=== PATIENT | female | born 2000 | race Caucasian/White ===

== ENCOUNTER 2022-07-02 09:50 | Outpatient (CLI) | payer OTHER | END 2022-07-02 09:51 | disposition home or self-care (01) | LOC: DTY/OP 09:50 | PROVIDERS: ATTEND Surgery | DX: E66.01 Morbid (severe) obesity due to excess calories (principal) | CPT/HCPCS: 97802 ==

== ENCOUNTER 2022-07-14 06:54 | Outpatient (CLI) | payer OTHER ==
[2022-07-14 10:34] LABS: #Eosinphils 0.2 10x3/uL (0.0-0.5); #Monocytes 0.7 10x3/uL (0.0-1.1); #Neutrophils 4.1 10x3/uL (1.5-8.4); %Basophils 0.4 % (0.0-2.0); %Eosinophils 2.3 % (0.0-6.0); %Lymphocytes 32.3 % (18.0-47.0); %Monocytes 8.9 % (0.0-10.0); Hemoglobin 14.9 g/dL (12.0-15.5); Mean Corpuscular HGB CONC 34.6 g/dL (32.0-36.0); Mean Corpuscular Hemoglobin 29.3 pg (27.0-33.0); Mean Corpuscular Volume 84.8 fl (81.6-98.3); Mean Platelet Volume 10.9 fl (7.4-10.4); Platelet Count 318 10x3/uL (150-450); RBC Distribution Width 13.4 % (11.5-14.5); Red Blood Cell (RBC) Count 5.08 10x6/uL (3.90-5.03); White Blood Cell (WBC) Count 7.3 10x3/uL (3.5-10.5)
[2022-07-14 10:41] LABS: BHCG - Serum Negative (NEGATIVE); Pregs Control Background? CLEAR/WHITE (CLR/WHITE); Pregs Control Bar Appear? YES (CONTROL BAR)
[2022-07-14 10:50] LABS: ALT (SGPT) 32 U/L (8-55); AST (SGOT) 22 U/L (5-34); Albumin 4.2 g/dL (3.5-5.0); Alkaline Phosphatase 74 U/L (40-110); Anion Gap 14 mmol/L (10-20); BUN (Urea Nitrogen) 14 mg/dL (7.0-18.7); Bilirubin, Total 0.4 mg/dL (0.2-1.2); Calc. Creatinine Clearance 0 mL/min (70-130); Calcium 9.1 mg/dL (7.8-10.44); Carbon Dioxide 22 mmol/L (22-29); Chloride 107 mmol/L (98-107); Estimated GFR 117; Globulin 2.8 g/dL (2.4-3.5); Glucose 90 mg/dL (70-105); Potassium 4.4 mmol/L (3.5-5.1); Sodium 139 mmol/L (136-145)
[2022-07-14 14:01] LABS: Hemoglobin A1c 4.8 % (4.0-6.0)
== END 2022-07-14 06:55 | disposition home or self-care (01) ==
LOC: LABBT 06:54
PROVIDERS: ATTEND Surgery
DX: Z01.818 Encounter for other preprocedural examination (principal); E66.01 Morbid (severe) obesity due to excess calories; Z20.822 Contact with and (suspected) exposure to COVID-19
CPT/HCPCS: 71046; 80053; 83036; 84703; 85025; 87811; 93005; 93010

== ENCOUNTER 2022-07-14 07:00 | Inpatient (IN) | payer OTHER ==
[2022-07-15] MEDS ORDERED: Lidocaine 1% MPF 2 ML VIAL ONE (07:42)
[2022-07-15] MEDS ORDERED: Ketamine 50 MG/ML (10ML VIAL) ONE (08:52)
[2022-07-15] MEDS ORDERED: SUGAMMADEX SODIUM 200 MG/2 ML VIAL ONE (08:52)
[2022-07-15] MEDS ORDERED: fentaNYL Citrate/PF 100 MCG/2 ML SYRINGE ONE (08:52)
[2022-07-15] MEDS ORDERED: Bupivacaine/Epinephrine 0.25% 30 ML VIAL ONE ×2 (08:55→08:56)
[2022-07-15] MEDS ORDERED: Midazolam HCl 2 mg/2 ml Vial ONE (09:02)
[2022-07-15] MEDS ORDERED: Sodium Chloride 0.9% 100 ML ONE (09:04)
[2022-07-15] MEDS ORDERED: CEFAZOLIN 2 GM VIAL ONE (09:04)
[2022-07-15] MEDS ORDERED: Ondansetron PF 4 MG/2 ML Vial ONE (09:17)
[2022-07-15] MEDS ORDERED: PROPOFOL 200 MG/20 ML VIAL ONE (09:17)
[2022-07-15] MEDS ORDERED: Glycopyrrolate 0.2 MG/ML 5 ML SYRINGE ONE (09:17)
[2022-07-15] MEDS ORDERED: Rocuronium Bromide 10 MG/ML (10ML VIAL) ONE (09:17)
[2022-07-15] MEDS ORDERED: Dexamethasone 20 MG/5 ML VIAL ONE (09:17)
[2022-07-15] MEDS ORDERED: Neostigmine Methylsulfate 3 MG/3 ML SYRINGE ONE (09:17)
[2022-07-15] MEDS ORDERED: Lidocaine 1% PF 5 ML VIAL ONE (09:17)
[2022-07-15] MEDS ORDERED: Ketorolac Tromethamine 30 MG/ML VIAL ONE (09:17)
[2022-07-15] MEDS ORDERED: Promethazine HCl 25 MG/ML VIAL IM PRN ×3 (09:43→10:21)
[2022-07-15] MEDS ORDERED: diphenhydrAMINE 50 MG/ML VIAL IM PRN (09:43)
[2022-07-15] MEDS ORDERED: diphenhydrAMINE 25 MG CAP PO PRN (09:43)
[2022-07-15] MEDS ORDERED: Ondansetron HCl/PF 4 MG/2 ML Vial IVP PRN (09:43)
[2022-07-15] MEDS ORDERED: fentaNYL Citrate/PF 2,000 MCG in Sodium Chloride 0.9% 60 ML IV PRN (09:43)
[2022-07-15] MEDS ORDERED: diphenhydrAMINE 50 MG/ML VIAL IVP PRN ×2 (09:43→10:21)
[2022-07-15] MEDS ORDERED: Promethazine HCl 25 MG/ML VIAL IVPB PRN (09:43)
[2022-07-15] MEDS ORDERED: Ondansetron PF 4 MG/2 ML Vial IVP PRN ×2 (09:43→10:21)
[2022-07-15] MEDS ORDERED: Naloxone HCl 0.4 mg/ml Vial IV PRN (09:43)
[2022-07-15] MEDS ORDERED: Communication Order-Pharmacy FS SCH (09:45)
[2022-07-15] MEDS ORDERED: Dextrose 50% Abboject 50 ML SYRINGE SLOW IVP PRN (10:21)
[2022-07-15] MEDS ORDERED: hydrALAZINE 20 MG/ML VIAL SLOW IVP PRN (10:21)
[2022-07-15] MEDS ORDERED: Dextrose 5% in Water 1,000 ML IV PRN (10:21)
[2022-07-15] MEDS ORDERED: Fentanyl 100 MCG/2 ML VIAL ONE (10:44)
[2022-07-15] MEDS: D5 1/2 NS w/20 mEq KCL 1,000 ML IV SCH ×2 (15:51→18:06)
[2022-07-16] MEDS: D5 1/2 NS w/20 mEq KCL 1,000 ML IV SCH ×2 (02:37→11:54)
[2022-07-16] MEDS: Hydrocodone-Acetamin 15 ML UDCUP PO PRN ×2 (05:33→11:55)
[2022-07-16 06:15] LABS: #Lymphocytes 2.2 thou/uL (1.20-3.40); #Monocytes 1.1 thou/uL (0.11-0.59); #Neutrophils 9.7 thou/uL (1.40-6.50); %Basophils 0.1 % (0.0-1.0); %Eosinophils 0.1 % (0.0-10.0); %Lymphocytes 17.2 % (21.0-51.0); %Monocytes 8.1 % (0.0-10.0); %Neutrophils 74.5 % (42.0-75.0); Hemoglobin 13.6 g/dL (12.0-16.0); Mean Corpuscular HGB CONC 34.3 g/dL (32.0-36.0); Mean Corpuscular Hemoglobin 30.6 pg (27.0-31.0); Mean Corpuscular Volume 89.2 fL (78.0-98.0); Platelet Count 279 thou/uL (130-400); RBC Distribution Width 12.4 % (11.5-14.5); Red Blood Cell (RBC) Count 4.46 mill/uL (4.20-5.40)
[2022-07-16 06:35] LABS: Anion Gap 13 mmol/L (10-20); BUN (Urea Nitrogen) 5 mg/dL (7.0-18.7); Calc. Creatinine Clearance 204 mL/min (70-130); Calcium 8.6 mg/dL (7.8-10.44); Carbon Dioxide 19 mmol/L (22-29); Chloride 107 mmol/L (98-107); Estimated GFR 120; Glucose 119 mg/dL (70-105); Potassium 3.9 mmol/L (3.5-5.1); Sodium 135 mmol/L (136-145)
[2022-07-16] MEDS ORDERED: Pantoprazole 40 MG VIAL IVP SCH (09:00)
[2022-07-16] MEDS ORDERED: Enoxaparin Sodium 40 MG/0.4 ML SYRINGE SC SCH (09:00)
[2022-07-16 11:22] VITALS: BMI 43.0
[2022-07-16 11:57] VITALS: BP 129/84; TEMP 98.7
== END 2022-07-16 12:57 | disposition home or self-care (01) | DRG 621 ==
LOC: EDSEX → EDSTATUS 07-15 07:00 → SURG A 07-15 07:03 → SJJU 07-15 14:53
PROVIDERS: ADMIT Surgery; ATTEND Surgery
PROC: 0DB64Z3 Excision of Stomach, Percutaneous Endoscopic Approach, Vertical (ICD-10-PCS; principal; 2022-07-15)
PROC: 8E0W4CZ Robotic Assisted Procedure of Trunk Region, Percutaneous Endoscopic Approach (ICD-10-PCS; 2022-07-15)
DX: E66.01 Morbid (severe) obesity due to excess calories (principal); Z68.41 Body mass index [BMI] 40.0-44.9, adult
CPT/HCPCS: 36415; 80048; 85025; 88307; 88342; 94760; C9113; J0690; J1100; J1650; J1885; J2250; J2405; J2704; J3010; J3480; J3490